=== PATIENT | male | born 1980 | race African-American/Black ===

== ENCOUNTER 2024-04-25 14:47 | Emergency (ER) | payer OTHER ==
--- NOTE | 2024-04-25 15:50 | RAD REPORT ---
EXAMINATION: XR LEFT TIBIA AND FIBULA CLINICAL INDICATION: . PAIN TECHNIQUE:Two view radiograph of the left tibia and fibula were obtained. COMPARISON: No prior exam. FINDINGS: No bone or joint abnormality detected.
--- NOTE | 2024-04-25 15:50 | RAD REPORT ---
EXAMINATION: XR LEFT ANKLE CLINICAL INDICATION: Male, 43 years old. PAIN TECHNIQUE: 3 view radiograph of the left ankle were obtained. COMPARISON: No prior exam. FINDINGS: No bone or joint abnormality seen.
--- NOTE | 2024-04-25 15:58 | ER ---
Nurse's Notes [facility] – [place], [place] Name: Jerod Zhang Age: 43 yrs Sex: Male : 1980 Arrival Date: 04/25/2024 Time: 14:47 Bed 19 Private MD: Diagnosis: Sprain of unspecified ligament of left ankle Presentation: 04/25 14:58 Chief complaint: Patient states: Injury to left ankle \T\ left leg. Coronavirus screen: ld1 At this time, the client does not indicate any symptoms associated with coronavirus-19. Ebola Screen: No symptoms or risks identified at this time. Initial Sepsis Screen: Does the patient meet any 2 criteria? No. Patient's initial sepsis screen is negative. Does the patient have a suspected source of infection? No. Patient's initial sepsis screen is negative. Risk Assessment: Do you want to hurt yourself or someone else? Patient reports no desire to harm self or others. Onset of symptoms was April 25, 2024. 14:58 Method Of Arrival: Ambulatory ld1 14:58 Acuity: CHARLENE 4 ld1 Triage Assessment: 14:59 General: Appears in no apparent distress. comfortable, Behavior is calm, cooperative, ld1 appropriate for age. Pain: Complains of pain in left leg Pain does not radiate. Pain currently is 8 out of 10 on a pain scale. Quality of pain is described as throbbing. EENT: No signs and/or symptoms were reported regarding the EENT system. Neuro: Level of Consciousness is awake, alert, obeys commands, Oriented to person, place, time, situation. Cardiovascular: Capillary refill < 3 seconds Patient's skin is warm and dry. Respiratory: Airway is patent Respiratory effort is even, unlabored. GI: Abdomen is round non-distended. : No signs and/or symptoms were reported regarding the genitourinary system. Derm: No signs and/or symptoms reported regarding the dermatologic system. Musculoskeletal: No signs and/or symptoms reported regarding the musculoskeletal system. Historical: - Allergies: 14:59 No Known Allergies; ld1 - PMHx: 14:59 Diabetes mellitus; Hypertensive disorder; Hypercholesterolemia; PTSD; Bipolar disorder; ld1 - Immunization history:: Adult Immunizations up to date. - Infectious Disease History:: Denies. - Social history:: Smoking status: Patient denies any tobacco usage or history of. Screenin:16 [facility] ED Fall Risk Assessment (Adult) History of falling in the last 3 months, kc6 including since admission Yes- single mechanical fall (1 pt) Confusion or Disorientation No (0 pts) Intoxicated or Sedated No (0 pts) Impaired Gait Yes (1 pt) Mobility Assist Device Used No (0 pt) Altered Elimination No (0 pt) Score/Fall Risk Level 0 - 2 = Low Risk Oriented to surroundings, Maintained a safe environment, Educated pt \T\ family on fall prevention, incl call for assistance when getting out of bed. Abuse screen: Denies threats or abuse. Denies injuries from another. Nutritional screening: No deficits noted. Tuberculosis screening: No symptoms or risk factors identified. Assessment: 15:17 General: Appears in no apparent distress. comfortable, obese, well groomed, well kc6 developed, Behavior is calm, cooperative, appropriate for age. Pain: Complains of pain in lateral side of left foot, lateral side of left heel and left lateral malleolus Quality of pain is described as aching, dull. Neuro: Level of Consciousness is awake, alert, obeys commands, Oriented to person, place, time, situation, Appropriate for age. Cardiovascular: Capillary refill < 3 seconds. Respiratory: Airway is patent Trachea midline Respiratory effort is even, unlabored, Respiratory pattern is regular, symmetrical. GI: No signs and/or symptoms were reported involving the gastrointestinal system. : No signs and/or symptoms were reported regarding the genitourinary system. EENT: No signs and/or symptoms were reported regarding the EENT system. Derm: Skin is healthy with good turgor, Skin is dry, Skin is pink, warm \T\ dry. Skin temperature is warm. Musculoskeletal: Range of motion: limited in left ankle Swelling present in left foot. Injury Description: Abrasion sustained to lateral side of left foot, lateral side of left heel and left lateral malleolus. 16:09 Reassessment: Patient appears in no apparent distress at this time. No changes from kc6 previously documented assessment. Patient and/or family updated on plan of care and expected duration. Pain level reassessed. Patient is alert, oriented x 3, equal unlabored respirations, skin warm/dry/pink. Vital Signs: 14:58 Pulse 88; Resp 18; Temp 98.1(O); Pulse Ox 97% on R/A; Weight 138.8 kg; Height 5 ft. 11 ld1 in. ; Pain 6/10; 15:01 BP 153 / 120; ld1 15:16 BP 178 / 111; Pulse 82; Resp 16 S; Pulse Ox 100% on R/A; kc6 15:39 BP 182 / 112; Pulse 93; Resp 18 S; Pulse Ox 100% on R/A; kc6 14:58 Body Mass Index 42.68 (138.80 kg, 180.34 cm) ld1 14:58 Pain Scale: Adult ld1 ED Course: 14:50 Patient arrived in ED. mr 14:50 Joseph Simpson MD is Attending Physician. ec2 14:59 Triage completed. ld1 14:59 Arm band placed on right wrist. ld1 15:09 Cassandra Salazar, ELBERT is Primary Nurse. kc6 15:16 Patient has correct armband on for positive identification. Bed in low position. Call kc6 light in reach. Side rails up X 1. Adult w/ patient. Pulse ox on. NIBP on. Door closed. Noise minimized. Lights dimmed. Pillow given. 15:16 Patient maintains SpO2 saturation greater than 95% on room air. kc6 15:47 Ankle Left 3 View XRAY In Process Unspecified. EDMS 15:47 Tib Fib Left XRAY In Process Unspecified. EDMS 16:01 Win wrap to left ankle. kc6 16:09 No provider procedures requiring assistance completed. Patient did not have IV access kc6 during this emergency room visit. Administered Medications: 15:57 Drug: Methocarbamol PO 500 mg PO once Route: PO; kc6 16:09 Follow up: Response: No adverse reaction kc6 Medication: 16:09 VIS not applicable for this client. kc6 Outcome: 15:57 Discharge ordered by MD. ec2 16:09 Discharged to home ambulatory, with significant other, kc6 16:09 Condition: good 16:09 Discharge instructions given to patient, significant other, Instructed on discharge instructions, follow up and referral plans. no drinking with medication, no driving heavy equipment, medication usage, Demonstrated understanding of instructions, follow-up care, medications, Prescriptions given X 1, 16:10 Patient left the ED. kc6 Signatures: Dispatcher [employer] EDAK Hina Coleman, Reg Reg mr Miya Larkin, ELBERT RN ld1 Cassandra Salazar RN RN kc6 Joseph Simpson MD MD ec2 Corrections: (The following items were deleted from the chart) 15:10 15:00 Reassessment: susan [email or web address]
--- NOTE | 2024-04-25 15:58 | EDPHYS ---
Physician Documentation [facility] Name: Jerod Zhang Age: 43 yrs Sex: Male : 1980 Arrival Date: 04/25/2024 Time: 14:47 Bed 19 Private MD: ED Physician Joseph Simpson HPI: 04/25 15:21 This 43 yrs old Black Male presents to ER via Ambulatory with complaints of Fall ec2 Injury, Left, Leg Pain. 15:21 Patient arrives today for left leg pain. I twisted his ankle and complaint of ankle and ec2 leg pain. Denies any other falls injuries or trauma. Denies any head strike, neck pain.. Historical: - Allergies: 14:59 No Known Allergies; ld1 - PMHx: 14:59 Diabetes mellitus; Hypertensive disorder; Hypercholesterolemia; PTSD; Bipolar disorder; ld1 - Immunization history:: Adult Immunizations up to date. - Infectious Disease History:: Denies. - Social history:: Smoking status: Patient denies any tobacco usage or history of. ROS: 15:21 Constitutional: as per hpi ec2 Exam: 15:21 Constitutional: GEN: NAD Head: atraumatic Eyes: EOMI Ears: External ears are ec2 normal. CV: regular rate LUNGS: no respiratory distress ABD: non-distended SKIN: no evidence of rashes MSK: Left distal tib-fib with TTP, no deformities appreciated, intact distal neurovascular status, TTP to the ankle as well. Vital Signs: 14:58 Pulse 88; Resp 18; Temp 98.1(O); Pulse Ox 97% on R/A; Weight 138.8 kg; Height 5 ft. 11 ld1 in. ; Pain 6/10; 15:01 BP 153 / 120; ld1 15:16 BP 178 / 111; Pulse 82; Resp 16 S; Pulse Ox 100% on R/A; kc6 15:39 BP 182 / 112; Pulse 93; Resp 18 S; Pulse Ox 100% on R/A; kc6 14:58 Body Mass Index 42.68 (138.80 kg, 180.34 cm) ld1 14:58 Pain Scale: Adult ld1 MDM: 14:50 Medical Screening Exam initiated ec2 15:21 Data reviewed: vital signs, nurses notes. ED course: Patient arrives today for left ec2 lower extremity pain. Examination yields MSK findings as above. Will obtain radiographs of the tib-fib and ankle. Suspect possible ankle sprain, lower suspicion fracture.. 15:57 ED course: Ankle and tib-fib x-rays are negative for acute pathology. Will discharge ec2 home. Return precautions given.. 04/25 15:00 Order name: Ankle Left 3 View XRAY; Complete Time: 15:56 ec2 04/25 15:00 Order name: Tib Fib Left XRAY; Complete Time: 15:56 ec2 04/25 15:57 Order name: Win Wrap; Complete Time: 16:00 ec2 Administered Medications: 15:57 Drug: Methocarbamol PO 500 mg PO once Route: PO; kc6 16:09 Follow up: Response: No adverse reaction kc6 Disposition Summary: 04/25/24 15:57 Discharge Ordered Notes: Location: Home ec2 Condition: Stable ec2 Diagnosis - Sprain of unspecified ligament of left ankle ec2 Followup: ec2 - With: Private Physician - When: - Reason: Re-evaluation by your physician Discharge Instructions: - Discharge Summary Sheet ec2 - Ankle Sprain, [id number] ec2 Forms: - Medication Reconciliation Form ec2 - Antibiotic Education ec2 - Prescription Opioid Use ec2 - Patient Portal Instructions ec2 - Leadership Thank You Letter ec2 Prescriptions: - methocarbamol 500 mg Oral tablet - take 1 tablet ORAL route 4 times per day; 20 tablet; Refills: 0, Product ec2 Selection Permitted Signatures: Dispatcher [employer] Miya Jin RN RN ld1 Cassandra Salazar RN RN kc6 Joseph Simpson MD MD ec2
[2024-04-25] MEDS ORDERED: methocarbamoL 500 MG TAB ONE (16:04)
[2024-04-25 17:56] VITALS: TEMP 98.1
[2024-04-25 17:57] VITALS: O2SAT 100
[2024-04-25 17:58] VITALS: BP 182/112
== END 2024-04-25 16:10 | disposition home or self-care (01) ==
LOC: ER 14:47
DX: S93.402A Sprain of unspecified ligament of left ankle, initial encounter (principal)
CPT/HCPCS: 99284